=== PATIENT | female | born 1980 | race Caucasian/White ===

== ENCOUNTER 2018-10-11 17:53 | Emergency (ER) | payer OTHER ==
[2018-10-11 18:37] VITALS: BMI 26.3
[2018-10-11 18:55] LABS: SQUAMOUS EPITHIAL 11 /hpf (0-5); URINE BACTERIA RARE (<OCC); URINE BILIRUBIN NEGATIVE (NEGATIVE); URINE BLOOD LARGE (NEGATIVE); URINE CLARITY CLEAR (Clear); URINE COLOR STRAW (YELLOW); URINE GLUCOSE (UA) NEG (NEGATIVE); URINE LEUKOCYTE ESTERASE TRACE Leu/uL (Negative); URINE PROTEIN NEGATIVE (NEGATIVE); URINE UROBILINOGEN 0.2-1.0 mg/dL (0.2-1.0)
[2018-10-11 22:57] VITALS: BP 120/68; PULSE 80; O2SAT 100
--- NOTE | 2018-10-12 06:35 | OBHP ---
Datetime: 10/11/2018 18:20 IP Adm Impression: , intrauterine ; Intact Membranes IP Admit Plan: Observation/Evaluation; Discharge home Admit Comment, IP Provider: 37 y/o female 18 wk GA presents to [facility] w/ c/o bleeding when urinat ing. Denies vaginal fluid loss, n/v/fevers. Denies urinary urgency/frequency. OB: [facility] Pmhx: denies HomeRx: vitamins Allergies: Penicilln Socialhx: denies toxic habits Surghx: hernia repair in childhood Famhx: denies ROS: all systems reviewed and negative except per HPI PhysicalExam: Gen: no acute distress Heart: s1 s2 present, RRR Lungs: normal resp effort, clear to auscultation bilaterally Abd: soft, non-tender normal BS extremities: no swelling, erythema/tenderness Speculum exam: cervix appears closed, no signs of bleeding Assessment and Plan 37 y/o female 18 wk c/o bleeding w/ urination Speculum exam shows no signs of bleeding FHR by doppler 147 BMP Will send U/A Case discussed w/ attending, Dr. Leroy Dahl, pgyi UA results reviewed showed Trace Leukocyte estrace and Large blood. Will send Urine C _ S for furt her evaluation. Patient called and informed about UA results. Patient advised to Start taking Macrobi d 100 mg BID x 7 days. Pateint to F/U with clinic for UA after completion of ABx course. Pat ient verbalized understanding. All questions answered. Case discussed with Dr. Leroy Barriga, PGY1 OB Hospitalist on-call - Pt seen with PGY1 Agree with note. Pt understands above MAHNDO Pelvic Type - PN: Adequate Extremities - PN: Not Done Abdomen - PN: Normal Back - PN: Not Done Breast - PN: Not Done Lungs - PN: Normal Heart - PN: Normal Thyroid - PN: Not Done Neurologic - PN: Not Done HEENT - PN: Normal General - PN: Normal Gestation - Est Wks by US: 18.0 Vital Signs Provider: Reviewed; Within Normal Limits IP Chief Complaint: Vaginal bleeding NICHD Decel Fetus A IP Provider: None Genitourinary Exam: Normal DTRs - PN: Normal
--- NOTE | 2018-10-12 06:35 | OBDCSUM ---
Datetime: 10/11/2018 18:32 Discharged to, Provider: Home Follow up at, Provider: [facility] Discharge Time: 10/11/2018 18:38 Follow up in weeks, Provider: 10/20/18 Disch Referrals: None Disch Activity Restrictions: No sexual activity; Nothing in vagina - [place], tampons, douche Discharge Diagnosis Prov Other: vaginal bleed/none noted
== END 2018-10-11 18:45 | disposition home or self-care (01) ==
LOC: H.EROB2 17:53
DX: O26.852 Spotting complicating pregnancy, second trimester (principal); Z3A.18 18 weeks gestation of pregnancy